=== PATIENT | male | born 2000 | race Caucasian/White ===

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

== ENCOUNTER → 2020-07-17 | Outpatient (CLI) | payer BC, OTHER | LOC: ZLAB.KSTAT 15:34 | DX: Z20.828 Contact with and (suspected) exposure to other viral communicable diseases (principal) ==

== ENCOUNTER 2020-12-18 01:33 | Emergency (ER) | payer OTHER, BC ==
[~2020-12-18] VITALS: Ht 180.3 cm; Wt 57.3 kg
[2020-12-18 01:45] VITALS: TEMP 98.8
[2020-12-18 02:24] LABS: BASO % 0.4 % (0.0-2.0); EOS # 0.1 (0.0-0.7); EOS % 0.5 % (0-4.0); GRAN % 72.4 % (42.2-75.2); HEMATOCRIT 42.5 % (36.0-47.0); HEMOGLOBIN 15.2 g/dl (12.5-16.1); LYMPH # 2.2 (1.2-3.4); LYMPH % 22.2 % (20.0-51.0); MEAN CELL VOLUME 84 fl (80.0-95.0); MEAN CORPUSCULAR HEMOGLOBIN 30 pg (26.0-32.0); MEAN CORPUSCULAR HGB CONC 36 g/dl (33.0-37.0); MEAN PLATELET VOLUME 9.4 fl (7.4-10.4); MONO # 0.4 (0.1-0.6); MONO % 4.2 % (1.7-9.3); PLATELET COUNT 270 K/mm3 (130-400); RED BLOOD COUNT 5.07 M/mm3 (4.20-5.60); REDCELL DISTRIBUTION WIDTH-CV 11.8 % (11.5-14.5)
[2020-12-18 02:35] LABS: ALBUMIN 4.5 gm/dL (3.5-5.0); BILIRUBIN,TOTAL 0.4 mg/dL (0.0-1.0); CREATININE, serum 0.82 (0.66-1.25); POTASSIUM 3.2 mmol/L (3.4-5.0); TOTAL PROTEIN 8.1 gm/dL (6.4-8.2)
[2020-12-18 03:45] LABS: COLLECTION METHOD CLEAN CATCH
[2020-12-18 03:52] LABS: AMORPHOUS CRYSTAL Present /uL; MUCOUS Present /lpf; PH 5 (5-8); SQUAMOUS EPITHELIAL 0-2 /hpf; URINE APPEARANCE Cloudy; URINE BACTERIA None Seen /hpf; URINE BILIRUBIN Negative (NEGATIVE); URINE BLOOD Negative (NEGATIVE); URINE COLOR Yellow; URINE GLUCOSE Negative (NEGATIVE); URINE KETONE Trace (NEGATIVE); URINE LEUKOCYTE ESTERASE Negative (NEGATIVE); URINE NITRATE Negative (NEGATIVE); URINE PROTEIN(semi-quant) 2+ (NEGATIVE); URINE RBC 0-2 /hpf
[2020-12-18] MEDS ORDERED: FLEXERIL 1010 MG/TAB PO (04:02)
[2020-12-18] MEDS ORDERED: NAPROXEN 3375 MG/TAB PO (04:02)
[2020-12-18 04:30] VITALS: BP 120/58; PULSE 68
== END 2020-12-18 04:40 | disposition home or self-care (01) ==
LOC: COL.ER 01:33
PROVIDERS: Emergency Medicine
DX: S09.90XA Unspecified injury of head, initial encounter (principal); S22.080A Wedge compression fracture of T11-T12 vertebra, initial encounter for closed fracture; E87.6 Hypokalemia; R41.3 Other amnesia; F17.200 Nicotine dependence, unspecified, uncomplicated; V59.9XXA Occupant (driver) (passenger) of pick-up truck or van injured in unspecified traffic accident, initial encounter
CPT/HCPCS: J7030

== ENCOUNTER 2021-10-04 22:26 | Emergency (ER) | payer OTHER, BC ==
[~2021-10-04 22:26] MED LIST: FLEXERIL 1010 MG/TAB PO; NAPROXEN 3375 MG/TAB PO
[2021-10-04 22:38] VITALS: TEMP 97.4
[2021-10-04 23:19] LABS: BASO # 0.1 K/mm3 (0.0-0.2); BASO % 0.6 % (0.0-2.0); EOS # 0.3 K/mm3 (0.0-0.7); GRAN # 5.2 K/mm3 (1.4-6.5); GRAN % 57.3 % (42.2-75.2); HEMOGLOBIN 14.3 g/dl (13.5-18.0); LYMPH # 3.1 K/mm3 (1.2-3.4); MEAN CELL VOLUME 87 fl (80.0-100.0); MEAN CORPUSCULAR HEMOGLOBIN 30 pg (27-31); MEAN CORPUSCULAR HGB CONC 35 g/dl (33.0-37.0); MEAN PLATELET VOLUME 9.7 fl (7.4-10.4); MONO # 0.4 K/mm3 (0.1-0.6); MONO % 4.3 % (1.7-9.3); PLATELET COUNT 249 K/mm3 (130-400); RED BLOOD COUNT 4.72 M/mm3 (4.20-5.60); REDCELL DISTRIBUTION WIDTH-CV 11.8 % (11.5-14.5)
[2021-10-04 23:38] LABS: BILIRUBIN,TOTAL 0.4 mg/dL (0.2-1.2); CALCIUM 8.3 mg/dL (8.4-10.2); CREATININE, serum 0.91 mg/dL (0.72-1.25); TOTAL PROTEIN 6.8 gm/dL (6.2-8.1)
[2021-10-04 23:39] LABS: POTASSIUM 2.9 mmol/L (3.5-4.5)
[2021-10-05 02:31] LABS: TRICYCLIC ANTIDEPRESS URINE NEGATIVE
[2021-10-05] MEDS ORDERED: K-DUR20 MEQ PO (02:36)
[2021-10-05 02:45] VITALS: BP 104/58; PULSE 74
== END 2021-10-05 02:45 | disposition home or self-care (01) ==
LOC: COL.ER 22:26
PROVIDERS: Nurse Practitioner
DX: E87.6 Hypokalemia (principal); T40.715A Adverse effect of cannabis, initial encounter
CPT/HCPCS: J1630; J3480; J7030